=== PATIENT | female | born 1960 | race Caucasian/White ===

== ENCOUNTER → 2016-10-06 | Outpatient (CLI) | payer OTHER ==
[~2016-10-06] MED LIST: AMARYL2 MG PO; COL-RITE100 MG PO; COL100 PO; COLACE100 MG PO; GLIMEPIRIDE2 M1 PO; GOOD SENSE ASP325 MG PO; KEFLEX250 MG PO; METFORMIN HCL1000 MG PO; METFORMIN HYD1000 M1 PO; NOR5 PO; NORCO1 TA2 PO; OXYCODONE HYDROC5 M2 PO; PRAVACHOL10 MG PO; PRILOSEC20 MG PO; PRILOSEC40 MG PO; SMZ-TMP1 TA1 PO; ZOF4 PO
== END | disposition home or self-care (01) ==
LOC: MA 09-28 13:30
PROC: BH02ZZZ Plain Radiography of Bilateral Breasts (ICD-10-PCS; principal; 2016-10-06)
DX: Z12.39 Encounter for other screening for malignant neoplasm of breast (principal)
CPT/HCPCS: G0202

== ENCOUNTER 2017-02-06 18:08 | Emergency (ER) | payer OTHER ==
[2017-02-06 19:52] LABS: BASOPHIL % 0.5 % (0-2)
[2017-02-06 19:54] LABS: PLATELET COUNT 427 x10^3mcL (130-400); RED CELL DISTRIBUTION WIDTH 15.7 % (11.5-14.5)
[2017-02-06 19:55] LABS: ALBUMIN 3.1 g/dL (3.4-5.0); ALKALINE PHOSPHATASE 71 U/L (46-116); ALT/SGPT 24 U/L (14-59); AMYLASE 57 U/L (25-115); AST/SGOT 16 U/L (15-37); BILIRUBIN TOTAL 0.3 mg/dL (0.20-1.00); CARBON DIOXIDE 30.4 mmol/L (21-32); CHLORIDE SERUM 104 mmol/L (98-107); CREATININE SERUM 0.8 mg/dL (0.6-1.0); GFR1 > 60 mL/min; GLUCOSE SERUM 157 mg/dL (74-106); LIPASE 158 IU/L (73-393); POTASSIUM SERUM 4.2 mmol/L (3.5-5.1); SODIUM SERUM 140 mmol/L (136-145); TOTAL PROTEIN, SERUM 6.9 g/dL (6.4-8.2)
[2017-02-06 19:58] LABS: CALCIUM 8.5 mg/dL (8.5-10.1)
[2017-02-06 21:01] LABS: UA SPECIFIC GRAVITY 1.025 (1.005-1.035); microscopic required? YES; urine erythrocyte 1+ (NEGATIVE)
[2017-02-06 21:52] VITALS: BP 140/80
== END 2017-02-06 21:52 | disposition home or self-care (01) ==
LOC: ED 18:08
PROVIDERS: Emergency Medicine
DX: R10.9 Unspecified abdominal pain (principal); R11.10 Vomiting, unspecified; R19.7 Diarrhea, unspecified; E11.9 Type 2 diabetes mellitus without complications; I10 Essential (primary) hypertension; E66.01 Morbid (severe) obesity due to excess calories
CPT/HCPCS: 83880; J0500; J1885; J2405

== ENCOUNTER → 2017-12-05 | Outpatient (CLI) | payer OTHER | END | disposition home or self-care (01) | LOC: MA 16:19 | PROC: BH02ZZZ Plain Radiography of Bilateral Breasts (ICD-10-PCS; principal; 2017-12-05) | DX: Z12.31 Encounter for screening mammogram for malignant neoplasm of breast (principal) | CPT/HCPCS: 77067 ==

== ENCOUNTER 2018-03-06 09:20 | Inpatient (IN) | payer BC ==
[~2018-03-06] VITALS: Ht 154.9 cm; Wt 92.8 kg
[2018-03-06 12:06] LABS: BASOPHIL % 0.9 % (0-2); RED CELL DISTRIBUTION WIDTH 14.4 % (11.5-14.5)
[2018-03-06 12:07] LABS: PLATELET COUNT 402 x10^3mcL (130-400)
[2018-03-06 12:32] LABS: CALCIUM 8.6 mg/dL (8.5-10.1); CARBON DIOXIDE 31.1 mmol/L (21-32); CHLORIDE SERUM 104 mmol/L (98-107); CREATININE SERUM 0.8 mg/dL (0.6-1.0); GFR1 > 60 mL/min; GLUCOSE SERUM 195 mg/dL (74-106); POTASSIUM SERUM 4.3 mmol/L (3.5-5.1); SODIUM SERUM 140 mmol/L (136-145)
[2018-03-06 12:37] LABS: ALKALINE PHOSPHATASE 78 U/L (46-116); ALT/SGPT 41 U/L (14-59); AST/SGOT 20 U/L (15-37); BILIRUBIN TOTAL 0.19 mg/dL (0.20-1.00); TOTAL PROTEIN, SERUM 6.7 g/dL (6.4-8.2)
[2018-03-06 14:34] VITALS: BP 115/54
[2018-03-06 14:44] VITALS: Ht 154.9 cm; Wt 92.8 kg
[2018-03-06 15:53] VITALS: BP 100/70
[2018-03-06 16:25] VITALS: BP 103/57
[2018-03-06 18:01] VITALS: BP 115/63
[2018-03-06 21:21] VITALS: BP 122/62
[2018-03-07 05:42] VITALS: BP 126/68
[2018-03-07 06:06] LABS: BASOPHIL % 0.5 % (0-2); PLATELET COUNT 337 x10^3mcL (130-400)
[2018-03-07 06:53] LABS: RED CELL DISTRIBUTION WIDTH 15.1 % (11.5-14.5)
[2018-03-07 09:07] VITALS: BP 131/65
[2018-03-07 11:34] VITALS: BP 130/70
[2018-03-07 16:41] VITALS: BP 140/80
[2018-03-07 21:10] VITALS: BP 138/80
== END 2018-03-08 00:09 | DRG 563 ==
LOC: ED 09:20 → DU 13:03 → ED 13:03 → DU 14:06
PROVIDERS: Emergency Medicine; Internal Medicine Pulmonary Disease
PROC: 2W3QX1Z Immobilization of Right Lower Leg using Splint (ICD-10-PCS; principal; 2018-03-06)
PROC: 0HQHXZZ Repair Right Upper Leg Skin, External Approach (ICD-10-PCS; 2018-03-06)
PROC: 0HQMXZZ Repair Right Foot Skin, External Approach (ICD-10-PCS; 2018-03-06)
DX: S82.831A Other fracture of upper and lower end of right fibula, initial encounter for closed fracture (principal); D62 Acute posthemorrhagic anemia; W19.XXXA Unspecified fall, initial encounter; E11.9 Type 2 diabetes mellitus without complications; I10 Essential (primary) hypertension; M19.90 Unspecified osteoarthritis, unspecified site; E66.01 Morbid (severe) obesity due to excess calories; S20.219A Contusion of unspecified front wall of thorax, initial encounter; Y93.89 Activity, other specified; Y92.89 Other specified places as the place of occurrence of the external cause; Y99.8 Other external cause status; Z79.899 Other long term (current) drug therapy; Z79.1 Long term (current) use of non-steroidal anti-inflammatories (NSAID); Z79.2 Long term (current) use of antibiotics; Z68.38 Body mass index [BMI] 38.0-38.9, adult
CPT/HCPCS: 82962; 90715; J2001; J2270; J3490; J7030; Q0092; Q0162

== ENCOUNTER 2018-03-11 14:06 | Emergency (ER) | payer BC ==
[~2018-03-11] VITALS: Ht 160 cm; Wt 102.1 kg
[2018-03-11 14:30] VITALS: Ht 160 cm; Wt 102.1 kg
[2018-03-11 16:53] VITALS: BP 143/78
== END 2018-03-11 16:53 | disposition home or self-care (01) ==
LOC: ED 14:06
DX: S82.291D Other fracture of shaft of right tibia, subsequent encounter for closed fracture with routine healing (principal); I10 Essential (primary) hypertension; E11.9 Type 2 diabetes mellitus without complications; Z98.890 Other specified postprocedural states; M19.90 Unspecified osteoarthritis, unspecified site; W18.30XD Fall on same level, unspecified, subsequent encounter